=== PATIENT | male | born 1970 | race Two or more races ===

== ENCOUNTER 2020-01-26 20:58 | Emergency (ER) | payer OTHER ==
[~2020-01-26] VITALS: Ht 162.6 cm; Wt 81.6 kg
[2020-01-26] MEDS ORDERED: VISTARIL50 MG (21:11)
[2020-01-26] MEDS ORDERED: ZYPREXA20 MG (21:11)
[2020-01-26] MEDS ORDERED: AMBIEN10 MG (21:11)
[2020-01-26] MEDS ORDERED: PROZAC20 MG (21:11)
== END 2020-01-27 11:20 | disposition home or self-care (01) ==
LOC: ER 20:58 → EDBD 21:29 → ER 01-27 11:20
DX: K42.9 Umbilical hernia without obstruction or gangrene (principal); L03.316 Cellulitis of umbilicus; K80.80 Other cholelithiasis without obstruction; Z03.818 Encounter for observation for suspected exposure to other biological agents ruled out

== ENCOUNTER → 2020-03-12 | Outpatient (CLI) | payer OTHER ==
[~2020-03-12] MED LIST: AMBIEN10 MG; PROZAC20 MG; VISTARIL50 MG; ZYPREXA20 MG
== END | disposition home or self-care (01) ==
LOC: SONOGRAMA 13:26
DX: K80.80 Other cholelithiasis without obstruction (principal); R10.84 Generalized abdominal pain